=== PATIENT | female | born 1990 | race Caucasian/White ===

== ENCOUNTER 2021-09-12 09:58 | Day surgery (SDC) | payer OTHER, SELFPAY ==
[~2021-09-12] VITALS: Ht 165.1 cm; Wt 83.9 kg
[2021-09-12] MEDS ORDERED: diphenhydrAMINE 50 MG/ML VIAL ONE (13:13)
[2021-09-12] MEDS ORDERED: MIDAZOLAM 5 MG/5 ML VIAL ONE (13:13)
[2021-09-12] MEDS ORDERED: fentaNYL citrate 0.05 MG/ML VIAL ONE (13:13)
[2021-09-12] MEDS ORDERED: LIDOCAINE 2% 100 MG/5 ML UJET TP ONE (13:13)
[2021-09-12] MEDS ORDERED: MIDAZOLAM 2 MG/2 ML VIAL IVP ONE (14:05)
[2021-09-12] MEDS ORDERED: diphenhydrAMINE 50 MG/ML VIAL IVP ONE (14:05)
[2021-09-12] MEDS ORDERED: fentaNYL citrate 0.05 MG/ML VIAL IVP ONE (14:05)
== END 2021-09-12 14:00 | disposition home or self-care (01) ==
LOC: MDS 09:58 → MMU 10:03 → MDS 14:00
PROVIDERS: ATTEND Internal Medicine Gastroenterology
DX: K62.5 Hemorrhage of anus and rectum (principal); K59.00 Constipation, unspecified; Z80.0 Family history of malignant neoplasm of digestive organs; Z88.1 Allergy status to other antibiotic agents; Z20.822 Contact with and (suspected) exposure to COVID-19
CPT/HCPCS: 45378; 81025; 87426; J1200; J2250; J3010